=== PATIENT | male | born 1965 | race African-American/Black ===

== ENCOUNTER 2016-11-18 16:10 | Emergency (ER) | payer OTHER ==
[2016-11-18 16:14] VITALS: BP 126/65; BMI 33.6
--- NOTE | 2016-11-18 16:34 | DR.CP ---
HPI - Time Seen Time seen: 16:15 - PCP Primary Care Physician: MORELIA - HPI Comment HPI Comment: Patient admits to chest pressure midsternum today; neck stiff for tow to three days. He denies history of cardiopulmonary disease. Smokes ~12 cigarettes daily; denies alcohol. PMHx of HTN and heart burn. He staters that his symptoms get better when he lays down and relax. - Complaint Chief Complaint:: PT. C/O CHEST PAIN THAT HAS BEEN INTERMITTENT TODAY WELL LEFT SIDED NECK PAIN. PT. DESCRIBES CHEST PAIN PRESSURE LIKE. - Source History Provided: Patient - Mode of Arrival Mode of Arrival: Ambulatory - Timing Onset of Chief Complaint: 11/18/16 PMH - PMH Past Medical History: Yes Past Medical History: Hypertension Past Surgical History: No Surgical History: No History - Family History History of Family Medical Conditions: Yes Family Medical History: [place], Coronary Artery Disease - Social History Does patient currently use any type of tobacco product: Yes Have you used tobacco products in the last 12 months: Yes Type of Tobacco Use: Cigarettes How many years tobacco product used: 1 Does any household member use tobacco: No Alcohol Use: None Do you use any recreational Drugs:: No Lives With: Spouse Lives Where: Home - infectious screening In the last 2 months have you had wt loss of >10#?: NO Have you had fever, night sweats or hemotysis?: No Have you traveled outside the country in the last 6 months?: No Isolation: Standard ROS - Review of Systems Eyes: No Symptoms Reported ENTM: No Symptoms Reported Respiratoy: No Symptoms Reported Cardiovascular: No Symptoms Reported Gastrointestinal/Abdominal: No Symptoms Reported Genitourinary: No Symptoms Reported Neurological: No Symptoms Reported Musculoskeletal: Neck Integumentary: No Symptoms Reported Hematologic/Lymphatic: No Symptoms Reported Endocrine: No Symptoms Reported Psychiatric: No Symptoms Reported All Other Systems: Reviewed and Negative PE - Vitals Vitals: Temperature 99 F Pulse Rate 84 Respiratory Rate 17 Blood Pressure 126/65 O2 Sat by Pulse Oximetry 97 - General Limitations: No Limitations General Appearance: Alert, In No Apparent Distress - Head Head Exam: Normal Inspection, Atraumatic - Eyes Eye exam: Normal Appearance, PERRL, EOMI - ENT ENT Exam: Normal Exam - Chest Chest Inspection: Normal Inspection, Symmetric Chest Wall Rise - Respiratory Respiratory Exam: Normal Lung Sounds Bilat Respiratory Exam: Bilateral Clear to Auscultation - Cardiovascular Cardiovascular Exam: Regular Rate, Normal Rhythm Pulse: Normal Edema: Normal - Abdominal Exam Abdominal Exam: Normal Inspection Abdominal Tenderness: negative: RUQ, RLQ, LUQ, LLQ, Epigastrium, Suprapubic, Diffuse, Mild, Moderate, Severe, Other - Extremities Extremities Exam: Normal Inspection - Back Back Exam: Normal Inspection - Neurologic Neurological Exam: Alert, Oriented X3, CN II-XII Intact - Psychiatric Psychiatric Exam: Normal Affect - Skin Skin Exam: Warm, Dry Course - Reevaluation 1st: Improved ROR - Labs Reviewed Result Diagrams: 11/18/16 16:48 11/18/16 16:48 Laboratory: WBC 12.3 X10^3/uL (3.6-10.0) H 11/18/16 16:48 RBC 5.34 X10^6/uL (4.7-6.0) 11/18/16 16:48 Hgb 15.7 g/dL (13.5-18.0) 11/18/16 16:48 Hct 46.8 % (42.0-54.0) 11/18/16 16:48 MCV 87.7 fL (80.0-100.0) 11/18/16 16:48 MCH 29.5 pg (27.0-34.0) 11/18/16 16:48 MCHC 33.6 g/dL (33.0-35.0) 11/18/16 16:48 RDW 13.8 % (11.6-16.5) 11/18/16 16:48 Plt Count 158 X10^3/uL (150.0-450.0) 11/18/16 16:48 MPV 10.4 fL (7.4-11.0) 11/18/16 16:48 Neut % 72.7 % (42.0-75.0) 11/18/16 16:48 Lymph % 12.5 % (21.0-51.0) L 11/18/16 16:48 [place] % 10.1 % (0.0-13.0) 11/18/16 16:48 Eos % 4.1 % (0.9-2.9) H 11/18/16 16:48 Baso % 0.6 % (0.2-1.0) 11/18/16 16:48 Neut # 8.9 x10^3/uL (2.2-4.8) H 11/18/16 16:48 Lymph # 1.5 X10^3/uL (1.3-2.9) 11/18/16 16:48 [place] # 1.2 x10^3/uL (0.3-0.8) H 11/18/16 16:48 Eos # 0.5 x10^3/uL (0.0-0.2) H 11/18/16 16:48 Baso # 0.1 X10^3/uL (0.0-0.1) 11/18/16 16:48 Absolute Nucleated RBC 0.0 /100WBC 11/18/16 16:48 INR Target Range - 11/18/16 16:48 INR 1.06 (0.8-1.3) 11/18/16 16:48 PTT 29.1 SECONDS (22.9-36.5) 11/18/16 16:48 PTT Comment - 11/18/16 16:48 Sodium 140 mmol/L (136-145) 11/18/16 16:48 Corrected Sodium TNP 11/18/16 16:48 Potassium 4.3 mmol/L (3.5-5.1) 11/18/16 16:48 Chloride 104 mmol/L (98-107) 11/18/16 16:48 Carbon Dioxide 29.6 mmol/L (21-32) 11/18/16 16:48 BUN 16 mg/dL (7-18) 11/18/16 16:48 Creatinine 1.72 mg/dL (0.70-1.30) H 11/18/16 16:48 Est GFR (MDRD) Af Amer 54 (>60) L 11/18/16 16:48 Est GFR (MDRD) Non-Af 45 (>60) L 11/18/16 16:48 Glucose 99 mg/dL (65-99) 11/18/16 16:48 Calcium 8.9 mg/dL (8.5-10.1) 11/18/16 16:48 Corrected Calcium TNP 11/18/16 16:48 Phosphorus 3.4 mg/dL (2.6-4.7) 11/18/16 16:48 Magnesium 1.7 mg/dL (1.7-2.9) 11/18/16 16:48 Total Bilirubin 0.40 mg/dL (0.2-1.0) 11/18/16 16:48 AST 15 Units/L (15-37) 11/18/16 16:48 ALT 36 Units/L (12-78) 11/18/16 16:48 Alkaline Phosphatase 88 Units/L (46-116) 11/18/16 16:48 Creatine Kinase 183 Units/L (39-308) 11/18/16 16:48 CK-MB (CK-2) 1.0 ng/mL (0-4.0) 11/18/16 16:48 CK/CKMB % Calc 0.6 % (<4) 11/18/16 16:48 Troponin I < 0.02 ng/mL (0-1.5) 11/18/16 16:48 Total Protein 7.6 g/dL (6.4-8.2) 11/18/16 16:48 Albumin 3.7 g/dL (3.4-5.0) 11/18/16 16:48 Globulin 3.9 g/dL (2.5-4.5) 11/18/16 16:48 Albumin/Globulin Ratio 0.9 Ratio (1.1-2.1) L 11/18/16 16:48 - XRAY XRAY Interpreted by: Radiologist (Chest negative cardiopulmonary disease) - Diagnosis Discharge Problem: Chest pressure - Discharge Plan Condition: Stable - Follow ups/Referrals Follow ups/Referrals: [facility],None [Primary Care Provider] - 3 days - Instructions
[2016-11-18] MEDS ORDERED: NS 1000 ML 1,000 ML ONE (16:42)
[2016-11-18 16:58] LABS: BASOPHILS # (AUTO) 0.1 X10^3/uL (0.0-0.1); BASOPHILS % (AUTO) 0.6 % (0.2-1.0); EOSINOPHILS # (AUTO) 0.5 x10^3/uL (0.0-0.2); EOSINOPHILS % (AUTO) 4.1 % (0.9-2.9); HEMATOCRIT 46.8 % (42.0-54.0); HEMOGLOBIN 15.7 g/dL (13.5-18.0); LYMPHOCYTES # (AUTO) 1.5 X10^3/uL (1.3-2.9); LYMPHOCYTES % (AUTO) 12.5 % (21.0-51.0); MEAN CORPUSCULAR HEMOGLOBIN 29.5 pg (27.0-34.0); MEAN CORPUSCULAR HGB CONC 33.6 g/dL (33.0-35.0); MEAN CORPUSCULAR VOLUME 87.7 fL (80.0-100.0); MEAN PLATELET VOLUME 10.4 fL (7.4-11.0); MONOCYTES # (AUTO) 1.2 x10^3/uL (0.3-0.8); MONOCYTES % (AUTO) 10.1 % (0.0-13.0); NEUTROPHILS # (AUTO) 8.9 x10^3/uL (2.2-4.8); NEUTROPHILS % (AUTO) 72.7 % (42.0-75.0); PLATELET COUNT 158 X10^3/uL (150.0-450.0); RED BLOOD COUNT 5.34 X10^6/uL (4.7-6.0); RED CELL DISTRIBUTION WIDTH 13.8 % (11.6-16.5); WHITE BLOOD COUNT 12.3 X10^3/uL (3.6-10.0)
[2016-11-18] MEDS ORDERED: NS 1000 ML 1,000 ML IV SCH (17:00)
--- NOTE | 2016-11-18 17:05 | RAD ---
HISTORY: Chest pain. Study: Chest one view Comparison: None. Findings: The trachea is midline. The cardiac silhouette is unremarkable. The lungs are clear without focal infiltrate or effusion. The bony thorax is unremarkable. IMPRESSION: 1. No acute cardiopulmonary disease. Reported By:
[2016-11-18 17:29] LABS: BLOOD UREA NITROGEN 16 mg/dL (7-18); CALCIUM 8.9 mg/dL (8.5-10.1); CARBON DIOXIDE 29.6 mmol/L (21-32); CHLORIDE 104 mmol/L (98-107); CREATININE 1.72 mg/dL (0.70-1.30); GLUCOSE 99 mg/dL (65-99); SODIUM 140 mmol/L (136-145); TROPONIN I < 0.02 ng/mL (0-1.5); eGFR BLACK RACES 54 (>60); eGFR NON BLACK RACES 45 (>60)
[2016-11-18 17:33] LABS: ALANINE AMINOTRANSFERASE 36 Units/L (12-78); ALBUMIN 3.7 g/dL (3.4-5.0); ALKALINE PHOSPHATASE 88 Units/L (46-116); ASPARTATE AMINO TRANSFERASE 15 Units/L (15-37); CKMB % 0.6 % (<4); CREATINE KINASE 183 Units/L (39-308); MAGNESIUM 1.7 mg/dL (1.7-2.9); PHOSPHORUS 3.4 mg/dL (2.6-4.7); TOTAL PROTEIN 7.6 g/dL (6.4-8.2)
== END 2016-11-18 17:51 | disposition home or self-care (01) ==
LOC: ER 16:25
DX: R07.89 Other chest pain (principal)
CPT/HCPCS: 36415; 71010; 80053; 82550; 82553; 83735; 84100; 84484; 85025; 85610; 85730; 93005; 93010; 96365; 99283; A4222